=== PATIENT | female | born 1965 | race Caucasian/White ===

== ENCOUNTER 2025-07-23 08:41 | Day surgery (SDC) | payer BC ==
[~2025-07-23] VITALS: Ht 160 cm; Wt 75.7 kg
[2025-07-23] VITALS (20 sets, daily range): BP systolic 98–142; BP diastolic 66–98
[~2025-07-23 08:41] MED LIST: CLEM1.34; DOCU100 PO; ESCI10; ESTR2 PO; Excedrin Extra1 EACH PO; FLUT.05NI; IBUP800 PO; LAMO25; MILK OF MAGNESIA PO; OXYACE5T PO; PROM25 PO; Vitamin B Comple1 EA PO; [UNRECOGNIZED DRUG - OTHER]; [UNRECOGNIZED DRUG - OTHER]
--- NOTE | 2025-07-23 09:22 | NUR ---
Patient confirms NPO status and agrees with scheduled surgery. Patient States Post-Procedure ride home has been arranged. Patient states colon prep results clear.Lungs clear T/O to Auscultation. Pre-Op and discharge teaching done. Pt verbalizes understanding.
--- NOTE | 2025-07-23 09:25 | NUR ---
07/23/25 0925 Zelda Rivera CONFIRMED AND REVIEWED H&P, MEDCICATIONS, ALLERGIES, MEDICAL HISTORY, RESPIRATORY HISTORY, VITAL SIGNS, 3-LEAD EKG, CONSENTS, AND PHYSICIAN ORDERS. PATIENT CONFIRMS NPO STATUS AND AGREES WITH SCHEDULED PROCEDURE. MONITOR INTACT WITH CONTINUOUS PULSE OXIMETRY, CAPNOGRAPHY, 3-LEAD EKG, INTERMITTENT BP. SUPPLEMENTAL O2 TO BE TITRATED THROUGHOUT PROCEDURE TO MAINTAIN O2 SATURATION ABOVE 90%. PATIENT DETERMINED TO BE ASA APPROPRIATE FOR PROPOFOL SEDATION PRIOR TO START OF PROCEDURE BY DR. DIEGO. MALLAMPATI CLASS 2 AIRWAY: COMPLETE VISUALIZATION OF THE UVULA.
--- NOTE | 2025-07-23 10:22 | NUR ---
Patient States Post-Procedure ride home has been arranged. Discharged via wheelchair to private car for ride home. Discharge instructions reviewed with patient. Patient verbalizes understanding. Copy given to patient to take home.
== END 2025-07-23 23:00 | disposition home or self-care (01) ==
LOC: ORSCMMR 08:41 → ORD 09:15 → ORSCMMR 23:00
PROVIDERS: Internal Medicine Gastroenterology
PROC: 0DBL8ZX Excision of Transverse Colon, Via Natural or Artificial Opening Endoscopic, Diagnostic (ICD-10-PCS; principal; 2025-07-23 09:15)
DX: Z12.11 Encounter for screening for malignant neoplasm of colon (principal); D12.3 Benign neoplasm of transverse colon; E78.00 Pure hypercholesterolemia, unspecified; F99 Mental disorder, not otherwise specified; E03.9 Hypothyroidism, unspecified; Z79.899 Other long term (current) drug therapy
CPT/HCPCS: 88305; J2704; J7120